=== PATIENT | female | born 1985 | race Hispanic/Latino ===

== ENCOUNTER 2021-06-11 01:11 | Day surgery (SDC) | payer BC, SELFPAY ==
[2021-06-03 09:31] VITALS: BMI 38.9
--- NOTE | 2021-06-03 09:41 | PC.NURSE ---
Report to the Outpatient Waiting Room, entrance under the green pavilion located off [facility], at time 1115 on date 06/11/21. OR Time: 1315. - You and your visitor will be asked a series of questions to screen for COVID 19 for your protection. - A mask is required within the hospital. - Only one visitor is allowed at this time. Patient visitors will be guided where to wait when not with patient. Preoperative COVID Testing Requirements: No COVID Test needed if: (proof is required; if not received patient will have Rapid Test prior to entry) - Patient has received COVID Vaccine at least 14 days prior to procedure date or - Patient has positive COVID test result within last 90 days of surgery date. COVID Test needed if above criteria is not met If not COVID vaccinated a COVID test must be conducted within 72 hours of surgery and patient is asked to isolate self from time of testing until procedure. You will go to the [facility] for your COVID testing. The [facility] is located at the corner of [address] [facility]. You will only be called if COVID results are positive and your surgeon may reschedule your elective surgery date. Patients may have clear liquids (water, carbonated beverages, clear teas, apple juice) until 3 hours prior to surgery with a maximum of 20 ounces. - No food from midnight until time of surgery - Infants may have breast milk until 4 hours before surgery, infant formula 6 hours prior to surgery. - Children will be allowed to drink immediately following surgery. If applicable, please bring a bottle or sippy cup to assist with drinking. Juice, water, soda, and popsicles are readily available. For infants on formula, please bring formula the day of surgery. Pacifiers are allowed. Take the following medications with a SIP of water the morning of surgery: NONE Medications to discontinue per physician: N/A Date to take last dose: N/A Please no make-up, nail algerian, hairspray, perfume, deodorant, or body powder the day of surgery. No jewelry (including any body piercings) or valuables the day of surgery, leave them at home. Please take a shower or bath the night before, or the morning of, surgery with an antibacterial soap. Wear comfortable, loose fitting clothing. Children are encouraged to wear pajamas. - Jewelry must be removed prior to entering the operating room. Rings and piercings that are not removed may be cut off. - The hospital will not accept responsibility for valuables. - Please leave all valuables, including medications, at home the day of surgery. If you are going home after surgery, a licensed hyster driver must drive you home. - NO public transportation without another adult. - We recommend that an adult stay with you for 24 hours following discharge. - We also recommend that you do not drive, make important decision, drink alcoholic beverages, or take any drugs that were not prescribed by your health care provider for at least 24 hours after your discharge time. For Pediatric surgeries, we recommend two adults accompany the child home (only one inside the building at this time). Follow any additional instructions given to you from your surgeon. Telephone instructions given to AL ROE and asked if any additional questions and then verbalized understanding. Patient advised to call surgeon office or pre surgery nurse liaison [phone] if any additional questions.
--- NOTE | 2021-06-10 08:22 | PM.IMHP ---
H&P: HPI History of Present Illness Date/Time: 06/10/21 08:22 Chief Complaint: Nasal bone fracture nasal septal fracture nasal obstruction cosmetic concern nasal congestion Narrative: patient presents for planned surgical procedure. No change in symptoms no change in history. Review of Systems Constitutional: Constitutional: Denies fatigue, Denies fever(s) and Denies lethargy Eyes: Eyes: Denies blurry vision and Denies change in vision ENT: Reports as per HPI Cardiovascular: Cardiovascular: Denies chest pain Respiratory: Respiratory: Denies cough Endocrine: Endocrine: Denies fatigue Hematologic/Lymphatic: Hematologic/Lymphatic: Denies easy bleeding, Denies easy bruising and Denies lymphadenopathy Allergic/Immunologic: Allergic/Immunologic: Denies seasonal rhinorrhea [facility] Past Medical History Medical History (Updated 06/02/21 @ 10:19 by Manjit Haines MD) Headache Family History Family History Mother Coronary stent occlusion Diabetes mellitus Heart disease Thyroid disease Grandparent Coronary stent occlusion Diabetes mellitus Heart disease Cataract Thyroid disease Father Diabetes mellitus Social History Social History Smoking status: Never smoker Alcohol intake: current Drinks per week: 1 Substance use: never Substance use type: does not use Living arrangements: with family Spiritual care concerns: Yes (NO BLOOD PRODUCTS) Meds Home Medications and Allergies Home Medications Medication Instructions Recorded Confirmed Type erenumab-aooe [Aimovig 70 mg SUBCUT MONTHLY 06/03/21 06/03/21 History Autoinjector] Allergies Allergy/AdvReac Type Severity Reaction Status Date / Time No Known Allergies Allergy Mild Verified 06/03/21 09:30 Exam Const: General: cooperative, healthy appearing, comfortable, well developed and alert HENMT: Head: normal to inspection, normocephalic and atraumatic Ears: hearing grossly normal bilaterally, external ears normal, TM's normal bilaterally and EAC's normal General nose exam: external nose not normal ( Dorsal deformity), Normal nares present, No nasal polyps present, Normal nasal mucous membranes and turbinates present and abnormal septum ( deviated) Face and sinus: normal facial exam Mouth: Yes Normal oral and palatal mucosa present, Yes lip normal, Yes tongue normal, Yes oropharynx normal and Yes moist mucous membranes Teeth and gingiva: dentition normal and gingiva normal Throat: posterior oropharynx normal, tonsils normal and uvula midline Eyes: General: appearance normal, both eyes and all related structures Periorbital: periorbital findings normal Eyelids: eyelids normal Conjunctivae: conjunctivae normal Sclera: sclerae normal Neck: Neck: normal visual inspection, full ROM and no lymphadenopathy Thyroid: thyroid normal Lymphatic: no lymphadenopathy noted Resp: Effort & Inspection: normal respiratory effort and able to speak in complete sentences Cardio: Jugular venous distension: no JVD Neuro: Cranial nerves: Yes CN's II-XII intact bilaterally Assessment and Plan Assessment and plan (1) Nasal obstruction: Code(s): J34.89 - Other specified disorders of nose and nasal sinuses Status: Acute Assessment and Plan: Plan is for the operating room for closed reduction nasal bone fracture closed reduction nasal septal fracture total operative time approximately 15 minutes. will require the malleable splint and brown tape as well as Afrin and pledgets headlight [place] elevator. The risk of further cosmetic deformity and failure to improve the deformity as well as the failure to improve her airway were discussed in very great detail and the patient voiced understanding of all this. we also discussed the significant amount of postoperative pain the patient would have as we are re fracturing the nasal bon
[2021-06-11] VITALS (9 sets, daily range): BP systolic 101–131; BP diastolic 63–77; PULSE 70–82; RESP 12–18; TEMP 36.4; O2SAT 97–100
--- NOTE | 2021-06-11 07:07 | WPDHPUPDATE1 ---
History and Physical Update Update Date/Time: 06/11/21 07:07 History and Physical has been reviewed, including an updated exam of the patient. There are NO changes in the patient's condition. Risks, benefits, and alternatives have been discussed and questions answered. Patient agrees to proceed with procedure.
[2021-06-11] MEDS: ACETAMINOPHEN 500 MG TABLET 1000 MG PO (12:29)
[2021-06-11] MEDS: LACTATED RINGERS 1,000 ML 30 ML IV CONT (12:30)
--- NOTE | 2021-06-11 12:32 | P.PNAN_ITS ---
Anes - Initial Pre Proc Eval Procedure: Operation Date: 06/11/21 13:15 Proposed Procedures p Closed Reduction Nasal Bone Fracture, Closed Reduction Septal Fracture - Manjit Haines MD Date/Time: 06/11/21 12:32 Surgeon: Manjit Haines MD Pre Op Diagnosis: nasal fx, septal fx Patient Data Age: 35 Gender: F Height: 1.55 m Weight: 93.65 kg Allergies Allergy/AdvReac Type Severity Reaction Status Date / Time No Known Allergies Allergy Mild Verified 06/03/21 09:30 Home Medications Medication Instructions Recorded Confirmed Type erenumab-aooe [Aimovig 70 mg SUBCUT MONTHLY 06/03/21 06/03/21 History Autoinjector] Patient hx anesthesia problems: none Family hx anesthesia problems: none Results Review: All pre-operative results and documents have been reviewed as part of the pre-operative evaluation. [facility] Past Medical History Medical History (Updated 06/11/21 @ 12:32 by Pavel Miles MD) Headache Morbid obesity Surgical History Surgical History (Updated 06/11/21 @ 12:32 by Pavel Miles MD) History of section Family History Family History Mother Coronary stent occlusion Diabetes mellitus Heart disease Thyroid disease Grandparent Coronary stent occlusion Diabetes mellitus Heart disease Cataract Thyroid disease Father Diabetes mellitus Social History Social History Smoking status: Never smoker Alcohol intake: current Drinks per week: 1 Substance use: never Substance use type: does not use Living arrangements: with family Spiritual care concerns: Yes (NO BLOOD PRODUCTS) Anes - Eval Final PreProcedure Day of Procedure 06/11/21 12:32 Patient weight: morbidly obese Heart: regular rate and rhythm Lungs: clear to auscultation Airway: Mallampati scale class 1 Neurological: alert and oriented Last oral intake: >/= 8 hours ASA classification: III Emergent: no Anesthetic plan: proceed Anesthesia type and monitoring: general ETT and standard monitoring Results Review: All pre-operative results and documents have been reviewed as part of the pre-operative evaluation. Informed Consent: The patient's anesthetic plan and its attendant risks and benefits were discussed with the patient/family/POA. Questions were solicited and answers provided to the satisfaction of the patient/family/POA.
[2021-06-11] MEDS: ceFAZolin 2 GM/D5W 50 ML 2 GM/50 ML BAG IVPB (12:46)
[2021-06-11] MEDS: OXYMETAZOLINE HCL 0.05% NAS 15 ML BTL (*BKC) 1 SPRAY NASAL (13:05)
[2021-06-11] MEDS: fentaNYL CITRATE INJ (*CRX) 100 MCG/2 ML VIAL 25 MCG IV PUSH ×4 (13:31→13:59)
--- NOTE | 2021-06-11 13:51 | W.PM.PROC2 ---
Procedure Note - Detailed Date of Procedure 06/11/21 Pre-op Diagnosis nasal fx, septal fx, nasal obstruction, nasal congestion Post-op Diagnosis same Procedure Performed closed reduction nasal septal fracture, closed reduction nasal septal fracture Surgeon Manjit Haines MD Anesthesia general Indications see above Findings mildly deviated septum to the left corrected concave right nasal bone convex left nasal bone corrected with close reduction Description of Procedure patient correctly identified consent verified in preop. Patient brought operating room. Time-out performed. General anesthesia induced endotracheal tube secured airway. Patient prepped and draped for for mentioned procedure. Second time-out performed. Afrin-soaked pledgets placed allowed to sit for 5 minutes the bilateral nasal passages. [place] elevator utilized to fracture the septum from left to right and set fractured the nasal bones in a more normal anatomic position the right was fractured out well pressure was applied to the left. Following the procedure bilateral nasal passages were suctioned Gelfoam placed underneath the right nasal bone. Aquaplast splint fashioned and placed over the nasal dorsum over brown tape brown tape placed over the Aquaplast splint. This marked end the procedure. I performed all dictated portions. Total blood loss 5 cc. No complications. Estimated Blood Loss 5 Drains No Packing Yes ( Absorbable) Pathology none sent Complications No immediate complications Condition stable Disposition PACU
[2021-06-11] MEDS: ONDANSETRON INJ 4 MG/2 ML VIAL IV PUSH (14:10)
[2021-06-11] MEDS: oxyCODONE HCL (*CRX) 5 MG TAB IR PO (15:01)
== END 2021-06-11 15:45 | disposition home or self-care (01) ==
PROVIDERS: PCP Nurse Practitioner Family; Visit Provider Otolaryngology
PROC: 0NSBXZZ Reposition Nasal Bone, External Approach (ICD-10-PCS; CPT 21315; principal; 2021-06-11 13:15)
DX: S02.2XXA Fracture of nasal bones, initial encounter for closed fracture (principal); X58.XXXA Exposure to other specified factors, initial encounter; E66.01 Morbid (severe) obesity due to excess calories; Z68.39 Body mass index [BMI] 39.0-39.9, adult
CPT/HCPCS: 21320; A9270; J0330; J0690; J1100; J2405; J2704; J3010; J7120